=== PATIENT | female | born 1985 | race Caucasian/White ===

== ENCOUNTER 2019-04-20 07:16 | Inpatient (IN) | payer OTHER ==
[2019-04-20] MEDS ORDERED: Sodium Chloride 0.9% 10 ML Syringe FLUSH PRN (07:24)
[2019-04-20] MEDS ORDERED: Nalbuphine 10 MG/1 ML Vial IVPUSH PRN (07:24)
[2019-04-20] MEDS ORDERED: Ondansetron 4 MG/2 ML SDV IVPUSH PRN (07:24)
[2019-04-20] MEDS ORDERED: Oxytocin/Lactated Ringers 10 UNIT/1,000 ML BAG IV SCH ×2 (07:30)
[2019-04-20] MEDS: Lactated Ringers 1,000 ML IV SCH ×3 (09:22→23:02)
--- NOTE | 2019-04-20 10:47 | PCM.LDHP ---
L&D History of Present Illness - General Date of Service: 04/20/19 Admit Problem/Dx: Patient Status Order with Admit Dx/Problem 04/20/19 07:24 Patient Status [ADT] Routine Admission Diagnosis/Problem Admission Diagnosis/Problem 04/20/19 10:36 Jc is a 33-year-old 1 para 0 female who is presently at 39 and 67 weeks gestational age with an KRISTIN of 04/21/2019 who is admitted for elective induction of labor on the a.m. of 04/20/2019. - History of Present Illness Introduction:: Jc is a 33-year-old 1 para 0 female who is presently at 39 and 67 weeks gestational age with an KRISTIN of 04/21/2019 who is admitted for elective induction of labor on the a.m. of 04/20/2019.Her cervix on admission was 2+ centimeters dilated 90% effaced, -2 station, mid position, very soft. Baby in vertex presentation. Artificial rupture membranes induction and will have Pitocin added as augmentation if indicated. Patient is a been advised as to the procedure of induction of labor, its risks, benefits, alternatives of care including line for natural onset of labor. She appears to understand and wished to proceed. PATENT EXAMINER history: Patient is 1 para 0. KRISTIN of 04/21/2019 as set by her certain last menstrual period starting 07/15/2018 and supported by at least 2 ultrasounds done 10/01/2018 and 12/02/2018. Her course has been relatively unremarkable. First visit was on 10/01/2018 at which time she was 11-1/7 weeks gestational age. She is seen on a regular basis. She was a centering patient. Weight gain was from 190.4 pounds up to 211.8 pounds for a 21 pound increase. Her fundal height growth has been appropriate. Her vital signs have been stable throughout . She did have a abnormal one-hour glucose tolerance test which was followed up with a 3 hour glucose tolerance test which returned normal. She declined flu vaccination. She is group B strep negative. She plans on breast-feeding. Vision had menarche age 16. Cycles every 28-30 days and regular. She is not using any control at the time conception. Last menstrual period was definite. Laboratory testing in shows blood to be a positive with a negative [place] screen. First hemoglobin was 14.2 g/dL. Lites are 263,000. She is rubella immune. RPR was nonreactive. Hepatitis B surface antigen and HIV assays were both negative as were her chlamydia and gonorrhea tests. Second trimester hemoglobin was 12.5 g/dL. Platelets are 263,000. One-hour GTT was 199. RPR- third trimester was nonreactive. The strep screen was negative. Allergies: Benadryl which causes fatigue, itching, rash Medications: 1. vitamins 1 by mouth daily Past medical history: Unremarkable Past surgical history: 1. Hernia repair age 10 2. [place] teeth extraction Family history: Mother is alive with hypothyroidism status post thyroidectomy. Also with breast cancer extending into lymph nodes at age 60. Father is alive has MS. 2 half brothers alive and well. One sister with type 2 diabetes. Maternal grandfather is at age 90 from old age. Paternal grandmother is from breast cancer at age 60. Paternal grandfather is from lung cancerwas a smoker. Paternal grandmother deceasedcolon cancerage 70. There is no family history for bleeding or clotting abnormalities. No anesthesia problems noted in the family. Mother did have a reaction anesthesia but this is nonspecific. Social history: Patient is single. 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 She is a college graduate. She lives in [place] with her significant other Ellis Elizondo. She was denies any significant most alcohol, drugs or tobacco. Review of systems: In general patient has no complaints. Babies active. No complaints at this time. Skin: Negative Lungs: No infectious symptoms or shortness of breath Cardiovascular: No chest pain or exercise intolerance Breasts: Changes associated . Patient plans to breast-feed GI: Negative : Changes associated with . Musculoskeletal: Negative Neurological: Negative In general the patient is well-developed, well-nourished, pleasant female of stated age in no acute distress. Skin is warm dry without lesions. HEENT, neck and back within normal limits. Lungs are clear with good breath sounds in all lung boss. Cardiovascular exam shows regular and rhythm without murmurs. Breast exam is deferred having been done at first visit found to be normal it is not repeated at this time. Abdomen is gravid with last fundal height in clinic at 39.5 cm baby in vertex presentation Genital exam per digital exam described in the history of present illness. Extremities and neurological exam are grossly within normal limits. - Related Data Allergies/Adverse Reactions: Allergies Allergy/AdvReac Type Severity Reaction Status Date / Time diphenhydramine Allergy Itching Verified 04/20/19 07:58 [From Benadryl] Past Medical History HEENT History: Reports: Other (See Below) Other HEENT History: Meniere's PATENT EXAMINER History: Reports: - Past Surgical History GI Surgical History: Reports: Hernia, Abdominal Social & Family History - Family History Family Medical History: Noncontributory - Tobacco Use Smoking Status *Q: Never Smoker Second Hand Smoke Exposure: No - Recreational Drug Use Recreational Drug Use: No H&P Review of Systems - Review of Systems: Review Of Systems: See Below L&D Exam - Exam Exam: See Below - Vital Signs Vital Signs: Last Vital Signs Temp 37.1 C 04/20/19 07:24 Pulse Resp 14 04/20/19 07:24 BP 120/83 04/20/19 07:24 Pulse Ox 100 04/20/19 07:24 Weight: 96.252 kg - Patient Data Lab Results Last 24 hrs: Laboratory Results - last 24 hr 04/20/19 Range/Units 07:46 WBC 10.58 H (3.98-10.04) K/mm3 RBC 4.34 (3.98-5.22) M/mm3 Hgb 12.5 (11.2-15.7) gm/dl Hct 36.4 (34.1-44.9) % MCV 83.9 D (79.4-94.8) fl MCH 28.8 (25.6-32.2) pg MCHC 34.3 (32.2-35.5) g/dl RDW Std Deviation 37.0 (36.4-46.3) fL Plt Count 235 (182-369) K/mm3 MPV 11.5 (9.4-12.3) fl Neut % (Auto) 72.2 H (34.0-71.1) % Lymph % (Auto) 19.1 L (19.3-51.7) % [place] % (Auto) 6.6 (4.7-12.5) % Eos % (Auto) 1.5 (0.7-5.8) Baso % (Auto) 0.3 (0.1-1.2) % Neut # (Auto) 7.64 H (1.56-6.13) K/mm3 Lymph # (Auto) 2.02 (1.18-3.74) K/mm3 [place] # (Auto) 0.70 H (0.24-0.36) K/mm3 Eos # (Auto) 0.16 (0.04-0.36) K/mm3 Baso # (Auto) 0.03 (0.01-0.08) K/mm3 Result Diagrams: 04/20/19 07:46 Problem List Initiated/Reviewed/Updated: Yes Orders Last 24hrs: Active Orders 24 hr Category Date Time Status Patient Status [ADT] Routine ADT 04/20/19 07:24 Active Activity as Tolerated [RC] PFP Care 04/20/19 07:24 Active Communication Order [RC] ASDIRECTED Care 04/20/19 07:24 Active Heart Tones [RC] ASDIRECTED Care 04/20/19 07:25 Active Non Stress Test [RC] PER UNIT ROUTINE Care 04/20/19 07:24 Active Notify Provider [RC] PFP Care 04/20/19 07:24 Active Notify Provider [RC] PRN Care 04/20/19 07:24 Active Peripheral IV Care [RC] . DIRECTED Care 04/20/19 07:25 Active Vital Signs [RC] PER UNIT ROUTINE Care 04/20/19 07:24 Active Regular Diet [DIET] Diet 04/20/19 Breakfast Active BLOOD BANK HOLD SPECIMEN [BBK] Stat Lab 04/20/19 07:46 Received RAPID PLASMA REAGIN,RPR [CHEM] Routine Lab 04/20/19 07:46 Received Lactated Ringers [Ringers, Lactated] 1,000 ml Med 04/20/19 07:30 Active IV ASDIRECTED Nalbuphine [Nubain] Med 04/20/19 07:24 Active 10 mg IVPUSH Q2H PRN Ondansetron [Zofran] Med 04/20/19 07:24 Active 4 mg IVPUSH Q4H PRN Oxytocin/Lactated Ringers [Pitocin in LR 10 Units/1,000 Med 04/20/19 07:30 Active ML] 10 unit in 1,000 ml IV .CONTINUOUS Oxytocin/Lactated Ringers [Pitocin in LR 10 Units/1,000 Med 04/20/19 07:30 Active ML] 10 unit in 1,000 ml IV TITRATE Sodium Chloride 0.9% [Saline Flush] Med 04/20/19 07:24 Active 10 ml FLUSH ASDIRECTED PRN Electronic Heart Tones Ext w TOCO [WOMSER] Oth 04/20/19 07:24 Ordered Routine Electronic Heart Tones Internal [WOMSER] Per Unit Ot 04/20/19 07:24 Ordered Routine Peripheral IV Insertion Adult [OM.PC] Routine Oth 04/20/19 07:24 Ordered Resuscitation Status Routine Resus Stat 04/20/19 07:24 Ordered Medication Orders Lactated Ringer's (Ringers, Lactated) 1,000 mls @ 100 mls/hr IV ASDIRECTED KAVIN Last Admin: 04/20/19 09:22 Dose: 100 mls/hr Oxytocin/Lactated Ringer's (Pitocin In Lr 10 Units/1,000 Ml) 10 unit in 1,000 mls @ 100 mls/hr IV .CONTINUOUS KAVIN Oxytocin/Lactated Ringer's (Pitocin In Lr 10 Units/1,000 Ml) 10 unit in 1,000 mls @ 12 mls/hr IV TITRATE KAVIN; Protocol Last Admin: 04/20/19 09:25 Dose: 2 munits/min, 12 mls/hr Nalbuphine HCl (Nubain) 10 mg IVPUSH Q2H PRN PRN Reason: Pain Ondansetron HCl (Zofran) 4 mg IVPUSH Q4H PRN PRN Reason: Nausea/Vomiting Sodium Chloride (Saline Flush) 10 ml FLUSH ASDIRECTED PRN PRN Reason: Keep Vein Open Assessment/Plan Comment:: 1. 39-6/7 week intrauterine , admitted for elective induction of labor 2. Group B strep screen negative 3. Rubella immune 4. RPR nonreactive 5. Patient plans to breast-feed. 6. Patient is okay with epidural but wants to start with natural childbirth plan. Plan: 1. Artificial rupture membranes inductionwill add Pitocin augmentation as indicated 2. Routine labor care 3. Epidural patient desires 4. CBC and RPR upon admission per protocol 5. Intermittent monitoring
[2019-04-20] MEDS ORDERED: ePHEDrine 50 MG/ML SDV IVPUSH PRN (17:22)
[2019-04-20] MEDS: fentaNYL 100 MCG/2 ML SDV EPIDUR PRN (17:34)
[2019-04-20] MEDS: Bupivacaine/fentaNYL/NS 100 ML Bag EPIDUR PRN (17:36)
--- NOTE | 2019-04-20 17:52 | PCM.PREANE ---
Preanesthetic Assessment - Procedure Proposed Procedure: Epidural - Anesthesia/Transfusion/Family Hx Anesthesia History: Prior Anesthesia Without Reaction Family History of Anesthesia Reaction: No Transfusion History: No Prior Transfusion(s) - Review of Systems General: No Symptoms Pulmonary: No Symptoms Cardiovascular: No Symptoms Gastrointestinal: Abdominal Pain (labor) Neurological: No Symptoms Other: Reports: Diabetes (gestational) - Physical Assessment Vital Signs: Last Vital Signs Temp 37.1 C 04/20/19 07:24 Pulse Resp 14 04/20/19 07:24 BP 120/83 04/20/19 07:24 Pulse Ox 100 04/20/19 07:24 Height: 1.75 m Weight: 96.252 kg ASA Class: 2 Mental Status: Alert & Oriented x3 Airway Class: Mallampati = 1 Dentition: Reports: Normal Dentition Thyro-Mental Finger Breadths: 3 Mouth Opening Finger Breadths: 3 ROM/Head Extension: Full Lungs: Clear to Auscultation, Normal Respiratory Effort Cardiovascular: Regular Rate, Regular Rhythm - Lab Values: Laboratory Last Values WBC 10.58 K/mm3 (3.98-10.04) H 04/20/19 07:46 RBC 4.34 M/mm3 (3.98-5.22) 04/20/19 07:46 Hgb 12.5 gm/dl (11.2-15.7) 04/20/19 07:46 Hct 36.4 % (34.1-44.9) 04/20/19 07:46 MCV 83.9 fl (79.4-94.8) D 04/20/19 07:46 MCH 28.8 pg (25.6-32.2) 04/20/19 07:46 MCHC 34.3 g/dl (32.2-35.5) 04/20/19 07:46 RDW Std Deviation 37.0 fL (36.4-46.3) 04/20/19 07:46 Plt Count 235 K/mm3 (182-369) 04/20/19 07:46 MPV 11.5 fl (9.4-12.3) 04/20/19 07:46 Neut % (Auto) 72.2 % (34.0-71.1) H 04/20/19 07:46 Lymph % (Auto) 19.1 % (19.3-51.7) L 04/20/19 07:46 [place] % (Auto) 6.6 % (4.7-12.5) 04/20/19 07:46 Eos % (Auto) 1.5 (0.7-5.8) 04/20/19 07:46 Baso % (Auto) 0.3 % (0.1-1.2) 04/20/19 07:46 Neut # (Auto) 7.64 K/mm3 (1.56-6.13) H 04/20/19 07:46 Lymph # (Auto) 2.02 K/mm3 (1.18-3.74) 04/20/19 07:46 [place] # (Auto) 0.70 K/mm3 (0.24-0.36) H 04/20/19 07:46 Eos # (Auto) 0.16 K/mm3 (0.04-0.36) 04/20/19 07:46 Baso # (Auto) 0.03 K/mm3 (0.01-0.08) 04/20/19 07:46 RPR Non-reactive (NONREACTIVE) 04/20/19 07:46 - Allergies Allergies/Adverse Reactions: Allergies Allergy/AdvReac Type Severity Reaction Status Date / Time diphenhydramine Allergy Itching Verified 04/20/19 07:58 [From Benadryl] - Anesthesia Plan Pre-Op Medication Ordered: None - Acknowledgements Anesthesia Type Planned: Epidural Pt an Appropriate Candidate for the Planned Anesthesia: Yes Alternatives and Risks of Anesthesia Discussed w Pt/Guardian: Yes Pt/Guardian Understands and Agrees with Anesthesia Plan: Yes PreAnesthesia Questionnaire HEENT History: Reports: Other (See Below) Other HEENT History: Meniere's Gastrointestinal History: Reports: GERD [employer]ER AND [employer]IVETER History: Reports: - Past Surgical History GI Surgical History: Reports: Hernia, Abdominal - SUBSTANCE USE Smoking Status *Q: Never Smoker Second Hand Smoke Exposure: No Recreational Drug Use History: No - CURRENT (IN HOUSE) MEDS Current Meds: Current Medications Ephedrine Sulfate (Ephedrine Sulfate) 5 mg IVPUSH ASDIRECTED PRN PRN Reason: HYPOTENTSION Fentanyl (Sublimaze) 100 mcg EPIDUR Q3H PRN PRN Reason: Pain Last Admin: 04/20/19 17:34 Dose: 100 mcg Fentanyl/Bupivacaine HCl (Fentanyl/Bupivacaine/Ns 2 Mcg-0.125% 100 Ml) 100 ml EPIDUR CONTINUOUS PRN PRN Reason: Pain Last Admin: 04/20/19 17:36 Dose: 100 ml Lactated Ringer's (Ringers, Lactated) 1,000 mls @ 100 mls/hr IV ASDIRECTED KAVIN Last Admin: 04/20/19 16:28 Dose: 100 mls/hr Oxytocin/Lactated Ringer's (Pitocin In Lr 10 Units/1,000 Ml) 10 unit in 1,000 mls @ 100 mls/hr IV .CONTINUOUS KAVIN Oxytocin/Lactated Ringer's (Pitocin In Lr 10 Units/1,000 Ml) 10 unit in 1,000 mls @ 12 mls/hr IV TITRATE KAVIN; Protocol Last Titration: 04/20/19 14:22 Dose: 14 munits/min, 84 mls/hr Nalbuphine HCl (Nubain) 10 mg IVPUSH Q2H PRN PRN Reason: Pain Last Admin: 04/20/19 16:36 Dose: 10 mg Ondansetron HCl (Zofran) 4 mg IVPUSH Q4H PRN PRN Reason: Nausea/Vomiting Sodium Chloride (Saline Flush) 10 ml FLUSH ASDIRECTED PRN PRN Reason: Keep Vein Open
[2019-04-20] MEDS ORDERED: Calcium Carbonate 500 MG Tab.Chew PO ONE (22:37)
[2019-04-20] MEDS ORDERED: Oxytocin/Lactated Ringers 20 UNIT/1,000 ML BAG IV SCH (23:08)
[2019-04-21] MEDS ORDERED: Bupivacaine 0.25% 10 ML SDV ONE
[2019-04-21] MEDS ORDERED: Oxytocin/Lactated Ringers 20 UNIT/1,000 ML BAG IV SCH ×2 (00:15→00:30)
[2019-04-21] MEDS: Lactated Ringers 1,000 ML IV SCH ×4 (01:33→09:15)
[2019-04-21] MEDS: Bupivacaine/fentaNYL/NS 100 ML Bag EPIDUR PRN ×2 (02:35→09:21)
[2019-04-21] MEDS: fentaNYL 100 MCG/2 ML SDV EPIDUR PRN (04:06)
[2019-04-21] MEDS ORDERED: Sodium Chloride 0.9% 1,000 ML ONE (04:09)
--- NOTE | 2019-04-21 04:11 | PCM.SN ---
- Free Text/Narrative Note: 0350 called to room 32 for break through pain. Bolus epidural with 2ml fentanyl 10ml bupivacaine 0.25% PF increase gtt to 14ml/hr VSS out of room at 0411.
[2019-04-21] MEDS ORDERED: Acetaminophen 325 MG Tab PO ONE (08:20)
--- NOTE | 2019-04-21 13:04 | PCM.SN ---
- Free Text/Narrative Note: Jc is a 33-year-old 1 para 0 female who is presently at 39 and 67 weeks gestational age with an KRISTIN of 04/21/2019 who is admitted for elective induction of labor on the a.m. of 04/20/2019.Her cervix on admission was 2+ centimeters dilated 90% effaced, -2 station, mid position, very soft. Baby in vertex presentation. Artificial rupture membranes induction and will have Pitocin added as augmentation if indicated. Patient is a been advised as to the procedure of induction of labor, its risks, benefits, alternatives of care including line for natural onset of labor. Patient progressed slowly throughout the course of labor. She had an epidural for labor analgesia. She became complete at approximately 0800 hrs. on 04/21/2019. She pushed for approximately 3 hours and 15 minutes at which time she requested intervention with vacuum extraction. During the course of pushing she did have a mildly elevated temperature but with IV fluid hydration this return to near normal. Vacuum extraction was discussed in detail the patient including the procedure, risks, benefits, potential complications and alternatives including . She appeared to understand and wish to proceed. She gave verbal consent for this. The bladder was drained of approximately 1000 mL of urine with a red rubber catheter. Using vacuum Extraction with Silastic cup vacuum extractor was applied and with one contraction the baby was delivered without problems. Baby delivered at 1116 hrs. on 04/21/2019. He was male weighing 3670 g (8 pounds 1.5 ounces), was 21.5 inches in length and at Apgars of 7 and 9. He delivered in a right occiput anterior position. Baby was placed on mom's abdomen. The cord was allowed to pulsate for approximately 2 minutes and then was clamped and cut by the baby's father Ellis. Blood was obtained. Pitocin was increased to 500 mL an hour to facilitate increase uterine tone and decrease likelihood of bleeding. Second-degree perineal lacerations repaired with 3-0 Monocryl using her labor epidural as anesthesia. Patient tolerated this well. The placenta delivered in a [place] presentation, appeared intact and complete and was discarded per patient desire. Patient plans to breast-feed. Estimated blood loss was 100 mL. Condition: Good
[2019-04-21] MEDS ORDERED: Benzocaine/Menthol 20%-0.5% Spray 56 GM Canister TOP PRN (14:17)
[2019-04-21] MEDS ORDERED: Acetaminophen 325 MG Tab PO PRN (14:17)
[2019-04-21] MEDS ORDERED: Docusate Sodium 100 MG Cap PO PRN (14:17)
[2019-04-21] MEDS ORDERED: Witch Hazel Medicated Pads 40/Jar TOP PRN (14:17)
[2019-04-21] MEDS ORDERED: Lanolin 100% Cream 7 GM Tube TOP PRN (14:17)
[2019-04-21] MEDS: Ibuprofen 600 MG Tab PO PRN (22:11)
[2019-04-22] MEDS: Ibuprofen 600 MG Tab PO PRN ×2 (03:35→21:27)
--- NOTE | 2019-04-22 08:35 | PCM48HPAN ---
Post Anesthesia Note - EVALUATION WITHIN 48HRS OF ANESTHETIC Vital Signs in Normal Range: Yes Patient Participated in Evaluation: Yes Respiratory Function Stable: Yes Airway Patent: Yes Cardiovascular Function Stable: Yes Hydration Status Stable: Yes Pain Control Satisfactory: Yes Nausea and Vomiting Control Satisfactory: Yes Mental Status Recovered: Yes Vital Signs: Last Vital Signs Temp 36.1 C 04/22/19 03:36 Pulse 85 04/22/19 03:36 Resp 14 04/22/19 03:36 BP 120/78 04/22/19 03:36 Pulse Ox 98 04/22/19 03:36 - COMMENTS/OBSERVATIONS Free Text/Narrative:: no anesthesia complications noted
[2019-04-22] MEDS: Prenatal Multivitamin with Calcium/Folic Acid/Iron Tab PO SCH (08:42)
[2019-04-23] MEDS: Ibuprofen 600 MG Tab PO PRN (03:28)
--- NOTE | 2019-04-23 07:33 | PCM.DCSUM1 ---
Discharge Summary - Hospital Course Free Text/Narrative:: Jc is a 33-year-old 1 para 0 female who is presently at 39 and 67 weeks gestational age with an KRISTIN of 04/21/2019 who is admitted for elective induction of labor on the a.m. of 04/20/2019.Her cervix on admission was 2+ centimeters dilated 90% effaced, -2 station, mid position, very soft. Baby in vertex presentation. Artificial rupture membranes induction and will have Pitocin added as augmentation if indicated. Patient is a been advised as to the procedure of induction of labor, its risks, benefits, alternatives of care including line for natural onset of labor. Patient progressed slowly throughout the course of labor. She had an epidural for labor analgesia. She became complete at approximately 0800 hrs. on 04/21/2019. She pushed for approximately 3 hours and 15 minutes at which time she requested intervention with vacuum extraction. During the course of pushing she did have a mildly elevated temperature but with IV fluid hydration this return to near normal. Vacuum extraction was discussed in detail the patient including the procedure, risks, benefits, potential complications and alternatives including . She appeared to understand and wish to proceed. She gave verbal consent for this. The bladder was drained of approximately 1000 mL of urine with a red rubber catheter. Using vacuum Extraction with Silastic cup vacuum extractor was applied and with one contraction the baby was delivered without problems. Baby delivered at 1116 hrs. on 04/21/2019. He was male weighing 3670 g (8 pounds 1.5 ounces), was 21.5 inches in length and at Apgars of 7 and 9. He delivered in a right occiput anterior position. Baby was placed on mom's abdomen. The cord was allowed to pulsate for approximately 2 minutes and then was clamped and cut by the baby's father Ellis. Blood was obtained. Pitocin was increased to 500 mL an hour to facilitate increase uterine tone and decrease likelihood of bleeding. Second-degree perineal lacerations repaired with 3-0 Monocryl using her labor epidural as anesthesia. Patient tolerated this well. The placenta delivered in a Jefferson presentation, appeared intact and complete and was discarded per patient desire. Patient plans to breast-feed. Estimated blood loss was 100 mL. Condition: Good HPI Initial Comments: Jc is a 33-year-old 1 para 0 female who is presently at 39 and 67 weeks gestational age with an KRISTIN of 04/21/2019 who is admitted for elective induction of labor on the a.m. of 04/20/2019.Her cervix on admission was 2+ centimeters dilated 90% effaced, -2 station, mid position, very soft. Baby in vertex presentation. Artificial rupture membranes induction and will have Pitocin added as augmentation if indicated. Patient is a been advised as to the procedure of induction of labor, its risks, benefits, alternatives of care including line for natural onset of labor. Patient progressed slowly throughout the course of labor. She had an epidural for labor analgesia. She became complete at approximately 0800 hrs. on 04/21/2019. She pushed for approximately 3 hours and 15 minutes at which time she requested intervention with vacuum extraction. During the course of pushing she did have a mildly elevated temperature but with IV fluid hydration this return to near normal. Vacuum extraction was discussed in detail the patient including the procedure, risks, benefits, potential complications and alternatives including . She appeared to understand and wish to proceed. She gave verbal consent for this. The bladder was drained of approximately 1000 mL of urine with a red rubber catheter. Using vacuum Extraction with Silastic cup vacuum extractor was applied and with one contraction the baby was delivered without problems. Baby delivered at 1116 hrs. on 04/21/2019. He was male weighing 3670 g (8 pounds 1.5 ounces), was 21.5 inches in length and at Apgars of 7 and 9. He delivered in a right occiput anterior position. Baby was placed on mom's abdomen. The cord was allowed to pulsate for approximately 2 minutes and then was clamped and cut by the baby's father Ellis. Blood was obtained. Pitocin was increased to 500 mL an hour to facilitate increase uterine tone and decrease likelihood of bleeding. Second-degree perineal lacerations repaired with 3-0 Monocryl using her labor epidural as anesthesia. Patient tolerated this well. The placenta delivered in a Jefferson presentation, appeared intact and complete and was discarded per patient desire. Patient plans to breast-feed. Estimated blood loss was 100 mL. Condition: Good Brief History: Jc is a 33-year-old 1 para 0 female who is presently at 39 and 67 weeks gestational age with an KRISTIN of 04/21/2019 who is admitted for elective induction of labor on the a.m. of 04/20/2019.Her cervix on admission was 2+ centimeters dilated 90% effaced, -2 station, mid position, very soft. Baby in vertex presentation. Artificial rupture membranes induction and will have Pitocin added as augmentation if indicated. Patient is a been advised as to the procedure of induction of labor, its risks, benefits, alternatives of care including line for natural onset of labor. Patient progressed slowly throughout the course of labor. She had an epidural for labor analgesia. She became complete at approximately 0800 hrs. on 04/21/2019. She pushed for approximately 3 hours and 15 minutes at which time she requested intervention with vacuum extraction. During the course of pushing she did have a mildly elevated temperature but with IV fluid hydration this return to near normal. Vacuum extraction was discussed in detail the patient including the procedure, risks, benefits, potential complications and alternatives including C -section. She appeared to understand and wish to proceed. She gave verbal consent for this. The bladder was drained of approximately 1000 mL of urine with a red rubber catheter. Using vacuum Extraction with Silastic cup vacuum extractor was applied and with one contraction the baby was delivered without problems. Baby delivered at 1116 hrs. on 04/21/2019. He was male weighing 3670 g (8 pounds 1.5 ounces), was 21.5 inches in length and at Apgars of 7 and 9. He delivered in a right occiput anterior position. Baby was placed on mom's abdomen. The cord was allowed to pulsate for approximately 2 minutes and then was clamped and cut by the baby's father Ellis. Blood was obtained. Pitocin was increased to 500 mL an hour to facilitate increase uterine tone and decrease likelihood of bleeding. Second-degree perineal lacerations repaired with 3-0 Monocryl using her labor epidural as anesthesia. Patient tolerated this well. The placenta delivered in a Jefferson presentation, appeared intact and complete and was discarded per patient desire. Patient plans to breast-feed. Estimated blood loss was 100 mL. Condition: Good Diagnosis: Stroke: No - Discharge Data Discharge Date: 04/23/19 Discharge Disposition: Home, Self-Care 01 Condition: Good - Referral to Home Health Primary Care Physician: Dago Gutierrez MD - Discharge Diagnosis/Problem(s) (1) Second degree laceration of perineum, delivered, current hospitalization SNOMED Code(s): 487796441, [id number] ICD Code: O70.1 - SECOND DEGREE PERINEAL LACERATION DURING DELIVERY Status : Acute Current Visit: Yes (2) 39 weeks gestation of SNOMED Code(s): 99237368 ICD Code: Z3A.39 - 39 WEEKS GESTATION OF Status: Acute Current Visit: Yes - Patient Summary/Data Complications: none Consults: none Hospital Course: uneventful - Patient Instructions Diet: Usual Diet as Tolerated Driving: Do Not Drive (48 hours) Showering/Bathing: May Shower Notify Provider of: Fever, Increased Pain, Swelling and Redness, Drainage, Nausea and/or Vomiting - Discharge Plan *PRESCRIPTION DRUG MONITORING PROGRAM REVIEWED*: Not Applicable *COPY OF PRESCRIPTION DRUG MONITORING REPORT IN PATIENT JING: Not Applicable Home Medications: Home Meds Acetaminophen [Tylenol] 650 mg PO Q6H PRN tablet 04/23/19 [Rx] Benzocaine/Menthol [Dermoplast Pain Relief [place]] 1 spray TOP ASDIRECTED PRN canister 04/23/19 [Rx] Docusate Sodium [Colace] 100 mg PO BID PRN cap 04/23/19 [Rx] Ibuprofen [Motrin] 600 mg PO Q6H PRN tablet 04/23/19 [Rx] Lanolin [Lansinoh HPA] 1 applic TOP ASDIRECTED PRN tube 04/23/19 [Rx] Vit with Ca/FA/Iron [ Plus Iron] 1 each PO DAILY tablet [Rx] Witch Ines [Tucks] 1 pad TOP ASDIRECTED PRN pad 04/23/19 [Rx] Referrals: Dago Gutierrez MD [Primary Care Provider] - (Patient call my Appointment for [address] Gutierrez ) - Discharge Summary/Plan Comment DC Time >30 min.: No - Patient Data Vitals - Most Recent: Last Vital Signs Temp 97.6 F 04/23/19 03:00 Pulse 76 04/23/19 03:00 Resp 15 04/23/19 03:00 BP 120/74 04/23/19 03:00 Pulse Ox 98 04/23/19 03:00 Weight - Most Recent: 212 lb 3.2 oz Med Orders - Current: Current Medications Acetaminophen (Tylenol) 650 mg PO Q4H PRN PRN Reason: mild pain or fever Benzocaine/Menthol (Dermoplast Pain Relief [place]) 0 gm TOP ASDIRECTED PRN PRN Reason: Perineal Comfort Measure Last Admin: 04/21/19 22:23 Dose: 1 canister Docusate Sodium (Colace) 100 mg PO BID PRN PRN Reason: Constipation Last Admin: 04/22/19 22:53 Dose: 100 mg Emollient Ointment (Lansinoh Hpa) 0 gm TOP ASDIRECTED PRN PRN Reason: Sore Nipples Last Admin: 04/21/19 22:24 Dose: 1 tube Ibuprofen (Motrin) 600 mg PO Q4H PRN PRN Reason: Mild pain or fever Last Admin: 04/23/19 03:28 Dose: 600 mg Prenat Multivit/[place]/Iron/Folic Ac ( Plus Iron) 1 each PO DAILY KAVIN Last Admin: 04/22/19 08:42 Dose: 1 each Witch Ines (Tucks) 1 pad TOP ASDIRECTED PRN PRN Reason: Pain Discontinued Medications Acetaminophen (Tylenol) 650 mg PO NOW ONE Stop: 04/21/19 08:21 Last Admin: 04/21/19 08:15 Dose: 650 mg Bupivacaine HCl (Sensorcaine-Mpf 0.25%) 20 ml .ROUTE .STK-MED ONE Stop: 04/21/19 00:01 Calcium Carbonate/Glycine (Tums) 1,000 mg PO ONETIME ONE Stop: 04/20/19 22:38 Last Admin: 04/20/19 23:01 Dose: 1,000 mg Ephedrine Sulfate (Ephedrine Sulfate) 5 mg IVPUSH ASDIRECTED PRN PRN Reason: HYPOTENTSION Fentanyl (Sublimaze) 100 mcg EPIDUR Q3H PRN PRN Reason: Pain Last Admin: 04/21/19 04:06 Dose: 100 mcg Fentanyl/Bupivacaine HCl (Fentanyl/Bupivacaine/Ns 2 Mcg-0.125% 100 Ml) 100 ml EPIDUR CONTINUOUS PRN PRN Reason: Pain Last Admin: 04/21/19 09:21 Dose: 100 ml Lactated Ringer's (Ringers, Lactated) 1,000 mls @ 100 mls/hr IV ASDIRECTED KAVIN Last Admin: 04/21/19 09:15 Dose: 100 mls/hr Oxytocin/Lactated Ringer's (Pitocin In Lr 10 Units/1,000 Ml) 10 unit in 1,000 mls @ 100 mls/hr IV .CONTINUOUS KAVIN Oxytocin/Lactated Ringer's (Pitocin In Lr 10 Units/1,000 Ml) 10 unit in 1,000 mls @ 12 mls/hr IV TITRATE KAVIN; Protocol Last Titration: 04/20/19 23:19 Dose: 0 munits/min, 0 mls/hr Oxytocin/Lactated Ringer's (Pitocin In Lr 20 Units/1,000 Ml) 20 unit in 1,000 mls @ 30 mls/hr IV TITRATE KAVIN; Protocol Last Admin: 04/20/19 23:19 Dose: 30 mls/hr Oxytocin/Lactated Ringer's (Pitocin In Lr 20 Units/1,000 Ml) 20 unit in 1,000 mls @ 30 mls/hr IV TITRATE KAVIN; Protocol Last Admin: 04/21/19 00:10 Dose: 30 mls/hr Oxytocin/Lactated Ringer's (Pitocin In Lr 20 Units/1,000 Ml) 20 unit in 1,000 mls @ 30 mls/hr IV TITRATE KAVIN; Protocol Last Admin: 04/21/19 00:33 Dose: 30 mls/hr Sodium Chloride (Normal Saline) Confirm Administered Dose 1,000 mls @ as directed .ROUTE .STK-MED ONE Stop: 04/21/19 04:10 Last Admin: 04/21/19 04:32 Dose: 100 mls/hr Nalbuphine HCl (Nubain) 10 mg IVPUSH Q2H PRN PRN Reason: Pain Last Admin: 04/20/19 16:36 Dose: 10 mg Ondansetron HCl (Zofran) 4 mg IVPUSH Q4H PRN PRN Reason: Nausea/Vomiting Sodium Chloride (Saline Flush) 10 ml FLUSH ASDIRECTED PRN PRN Reason: Keep Vein Open
[2019-04-23] MEDS: Prenatal Multivitamin with Calcium/Folic Acid/Iron Tab PO SCH (10:38)
== END 2019-04-23 12:15 | disposition home or self-care (01) | DRG 807 ==
LOC: JD.OB 07:16 → OBSVTOIN 04-21 11:16 → JD.OB 04-21 11:17
PROVIDERS: ADMIT Obstetrics & Gynecology; ATTEND Obstetrics & Gynecology
PROC: 10D07Z6 Extraction of Products of Conception, Vacuum, Via Natural or Artificial Opening (ICD-10-PCS; principal; 2019-04-21)
PROC: 0KQM0ZZ Repair Perineum Muscle, Open Approach (ICD-10-PCS; 2019-04-21)
PROC: 10907ZC Drainage of Amniotic Fluid, Therapeutic from Products of Conception, Via Natural or Artificial Opening (ICD-10-PCS; 2019-04-21)
PROC: 3E0R3BZ Introduction of Anesthetic Agent into Spinal Canal, Percutaneous Approach (ICD-10-PCS; 2019-04-21)
DX: O48.0 Post-term pregnancy (principal); Z37.0 Single live birth; O70.1 Second degree perineal laceration during delivery; Z88.6 Allergy status to analgesic agent; Z3A.40 40 weeks gestation of pregnancy
CPT/HCPCS: 01967; 36415; 51701; 51702; 59025; 59409; 85025; 86592; A9270-GY; J2300; J2590; J3010; J3490; J7040; J7120

== ENCOUNTER 2020-08-24 21:08 | Emergency (ER) | payer MEDICAID, OTHER ==
[2020-08-24] MEDS ORDERED: Sodium Chloride 0.9% 10 ML Syringe FLUSH PRN (21:39)
[2020-08-24] MEDS ORDERED: Sodium Chloride 0.9% 1,000 ML IV STA (21:50)
[2020-08-24] MEDS ORDERED: Promethazine 25 MG in Sodium Chloride 0.9% 50 ML IV ONE (21:53)
--- NOTE | 2020-08-24 21:58 | EDM.PDOC ---
ED HPI GENERAL MEDICAL PROBLEM - General Chief Complaint: Gastrointestinal Problem Stated Complaint: 9 1/2 WKS PREG. NOT ABLE TO KEEP ANYTHING DOWN Time Seen by Provider: 08/24/20 21:30 Source of Information: Reports: Patient, RN Notes Reviewed History Limitations: Reports: No Limitations - History of Present Illness INITIAL COMMENTS - FREE TEXT/NARRATIVE: Patient is a 35-year-old female G2, P1 9.5 weeks gestation presenting to the emergency department with complaints of intractable nausea and vomiting. Her LMP was 06/19/2020. She states she has been having these problems since approximately 5 weeks gestation. Over the course of last week, she has been unable to keep liquids down. She states every time she takes a sip of water she vomits. She did have Zofran and Unisom her left from her previous which she has been using. These medications "do not touch it". Her SEWING MACHINE ATTACHMENT TESTER is Dr. Gutierrez, however she has not had an appointment with him thus far this [facility]. She denies any pelvic cramping or abnormal vaginal bleeding. She states when she is vomiting she will get some pain in her lower abdomen which she attributes straining her abdominal muscles from retching. Pain is not present at the time of exam. She denies any fever or chills. She is had no dysuria but states her urine has been dark in color. She did have nausea and vomiting with her previous , but it was not as severe. Right Lower Abdomen Pain Score (Numeric/FACES): 4 - Related Data Allergies Allergy/AdvReac Type Severity Reaction Status Date / Time diphenhydramine Allergy Itching Verified 08/24/20 21:38 [From Benadryl] Home Meds: Home Meds Doxylamine Succinate [Unisom] 25 mg PO Q6H PRN 08/24/20 [History] Ondansetron [Zofran] 8 mg PO Q6H PRN 08/24/20 [History] Potassium Chloride 10 meq PO BID 10 Days #5 capsule.er 08/24/20 [Rx] Promethazine [Phenergan] 25 mg PO Q6H PRN #15 tab 08/24/20 [Rx] Past Medical History HEENT History: Reports: Other (See Below) Other HEENT History: Meniere's disease Gastrointestinal History: Reports: GERD SEWING MACHINE ATTACHMENT TESTER History: Reports: Neurological History: Reports: Migraines - Past Surgical History GI Surgical History: Reports: Hernia, Abdominal Social & Family History - Family History Family Medical History: No Pertinent Family History - Tobacco Use Tobacco Use Status *Q: Never Tobacco User Second Hand Smoke Exposure: No - Caffeine Use Caffeine Use: Reports: None - Recreational Drug Use Recreational Drug Use: No ED ROS GENERAL - Review of Systems Review Of Systems: See Below Constitutional: Reports: Fatigue. Denies: Fever, Chills HEENT: Reports: No Symptoms Respiratory: Reports: No Symptoms Cardiovascular: Reports: No Symptoms Endocrine: Reports: No Symptoms GI/Abdominal: Reports: Nausea, Vomiting. Denies: Abdominal Pain, Diarrhea : Reports: No Symptoms Musculoskeletal: Reports: No Symptoms Skin: Reports: No Symptoms Neurological: Reports: No Symptoms Psychiatric: Reports: No Symptoms Hematologic/Lymphatic: Reports: No Symptoms Immunologic: Reports: No Symptoms ED EXAM - Physical Exam Exam: See Below Exam Limited By: No Limitations General Appearance: Alert, WD/WN, No Apparent Distress Throat/Mouth: Other (dry mucous membranes) Respiratory/Chest: No Respiratory Distress, Lungs Clear, Normal Breath Sounds, No Accessory Muscle Use, Chest Non-Tender Cardiovascular: Normal Peripheral Pulses, Regular Rate, Rhythm, No Edema, No Gallop, No JVD, No Murmur, No Rub GI/Abdominal Exam: Normal Bowel Sounds, Soft, Non-Tender, No Organomegaly, No Distention, No Abnormal Bruit, No Mass, Pelvis Stable Neurological: Alert, Oriented, CN II-XII Intact, Normal Cognition, Normal Gait, Normal Reflexes, No Motor/Sensory Deficits Psychiatric: Normal Affect, Normal Mood Skin Exam: Warm, Dry, Intact, Normal Color, No Rash Course - Vital Signs Last Recorded V/S: Last Vital Signs Temp 97.5 F 08/24/20 21:33 Pulse 104 H 08/24/20 21:33 Resp 17 08/24/20 21:33 BP 128/91 H 08/24/20 21:33 Pulse Ox 98 08/24/20 21:33 - Orders/Labs/Meds Labs: Laboratory Tests 08/24/20 08/24/20 08/24/20 Range/Units 21:58 21:58 23:26 WBC 13.85 H (3.98-10.04) K/mm3 RBC 5.03 (3.98-5.22) M/mm3 Hgb 14.7 D (11.2-15.7) gm/dl Hct 41.8 (34.1-44.9) % MCV 83.1 (79.4-94.8) fl MCH 29.2 (25.6-32.2) pg MCHC 35.2 (32.2-35.5) g/dl RDW Std Deviation 38.1 (36.4-46.3) fL Plt Count 310 D (182-369) K/mm3 MPV 10.5 (9.4-12.3) fl Neut % (Auto) 76.8 H (34.0-71.1) % Lymph % (Auto) 15.7 L (19.3-51.7) % [place] % (Auto) 6.5 (4.7-12.5) % Eos % (Auto) 0.7 (0.7-5.8) Baso % (Auto) 0.2 (0.1-1.2) % Neut # (Auto) 10.63 H (1.56-6.13) K/mm3 Lymph # (Auto) 2.17 (1.18-3.74) K/mm3 [place] # (Auto) 0.90 H (0.24-0.36) K/mm3 Eos # (Auto) 0.10 (0.04-0.36) K/mm3 Baso # (Auto) 0.03 (0.01-0.08) K/mm3 Manual Slide Review Normal smear Sodium 137 (136-145) mEq/L Potassium 3.1 L (3.5-5.1) mEq/L Chloride 99 (98-107) mEq/L Carbon Dioxide 24 (21-32) mEq/L Anion Gap 17.1 H (5-15) BUN 10 (7-18) mg/dL Creatinine 0.7 (0.55-1.02) mg/dL Est Cr Clr Drug Dosing 118.35 mL/min Estimated GFR (MDRD) > 60 (>60) mL/min BUN/Creatinine Ratio 14.3 (14-18) Glucose 82 (74-106) mg/dL Calcium 9.3 (8.5-10.1) mg/dL Magnesium 1.8 (1.8-2.4) mg/dl Total Bilirubin 1.0 (0.2-1.0) mg/dL AST 36 (15-37) U/L ALT 102 H (14-59) U/L Alkaline Phosphatase 108 (46-116) U/L C-Reactive Protein 2.1 H* (<1.0) mg/dL Total Protein 8.3 H (6.4-8.2) g/dl Albumin 4.1 (3.4-5.0) g/dl Globulin 4.2 gm/dL Albumin/Globulin Ratio 1.0 (1-2) HCG, Quant 85457.0 mIU/mL Urine Color Dark yellow (Yellow) Urine Appearance Clear (Clear) Urine pH 6.5 (5.0-8.0) Ur Specific [place] 1.025 (1.005-1.030) Urine Protein 1+ H (Negative) Urine Glucose (UA) Negative (Negative) Urine Ketones 4+ H (Negative) Urine Occult Blood Negative (Negative) Urine Nitrite Negative (Negative) Urine Bilirubin 2+ H (Negative) Urine Urobilinogen 4.0 H (0.2-1.0) Ur Leukocyte Esterase Trace H (Negative) Urine RBC 0-5 (0-5) /hpf Urine WBC 0-5 (0-5) /hpf Ur Squamous Epith Cells 20-30 H (0-5) /hpf Urine Bacteria Moderate H (FEW) /hpf Urine Mucus Many H (FEW) /hpf Meds: Medications Discontinued Medications Generic Name Dose Route Start Last Admin Trade Name Freq PRN Reason Stop Dose Admin Sodium Chloride 1,000 mls @ 999 mls/hr 08/24/20 21:50 08/24/20 22:16 Normal Saline IV 08/24/20 22:50 999 mls/hr NOW STA Administration Promethazine HCl 25 mg/ Sodium 51 mls @ 100 mls/hr 08/24/20 21:53 08/24/20 22:16 Chloride IV 08/24/20 22:23 100 mls/hr ONETIME ONE Administration Sodium Chloride 10 ml 08/24/20 21:39 08/24/20 22:16 Saline Flush FLUSH 10 ml ASDIRECTED PRN Administration Keep Vein Open - Re-Assessments/Exams Free Text/Narrative Re-Assessment/Exam: Patient is a 35-year-old female G2, P1, 9-1/2 weeks gestation presenting with complaints of intractable nausea and vomiting worse over the last 1 week. She has been using Zofran ODT and Unisom with little relief. States she has not been able to keep fluids down. I have ordered blood work, urinalysis, will liter bolus of normal saline, and Phenergan 25 mg IV. 08/24/20 22:53 Hematology was significant for WBC minimally elevated at 13.5, potassium 3.1, anion gap 17.1, CRP 2.1. Patient is feeling much better after the Phenergan. IV fluids are still infusing. She is sipping on Powerade to see how she tolerates oral fluids. She has not provided a urine sample thus far but she paul l attempt shortly. 08/24/20 23:50 1+ protein, 4+ ketones, 2+ bilirubin, 4.0 urobilinogen, trace leukocyte esterase, 20-30 squamous epithelials, moderate bacteria, many mucus. Results are indicative of likely contamination. I have sent urine for culture. Patient has tolerated oral fluids well. I have sent a prescription for Phenergan as well as oral potassium to the pharmacy. Discharge instructions as documented. Departure - Departure Time of Disposition: 23:55 Disposition: Home, Self-Care Condition: Good Clinical Impression: Nausea and vomiting during , Hypokalemia - Discharge Information *PRESCRIPTION DRUG MONITORING PROGRAM REVIEWED*: No *COPY OF PRESCRIPTION DRUG MONITORING REPORT IN PATIENT JING: No Prescriptions: Promethazine [Phenergan] 25 mg PO Q6H PRN #15 tab PRN Reason: Nausea/Vomiting Potassium Chloride 10 meq PO BID 10 Days #5 capsule.er Instructions: Nausea and Vomiting, Adult Referrals: Dago Gutierrez MD [Primary Care Provider] - Forms: ED Department Discharge Additional Instructions: You were seen in the emergency department today for excessive nausea and vomiting during . Work-up included blood work and urinalysis. Results your work-up showed that you were mildly dehydrated. Your potassium was also found to be low. While in the ER, you received a liter of IV fluids as well as Phenergan IV which did improve your symptoms. A prescription for Phenergan and potassium has been sent to [facility]. Uses medications as prescribed. Recommend oral hydration with Gatorade or Powerade and bland diet as tolerated. Keep your appointment with your SEWING MACHINE ATTACHMENT TESTER as currently scheduled. Return to ER for any new or worsening symptoms. Sepsis Event Note (ED) - Evaluation Sepsis Screening Result: No Definite Risk
== END 2020-08-25 00:03 | disposition home or self-care (01) ==
LOC: JD.ED 21:08
DX: O21.9 Vomiting of pregnancy, unspecified (principal); O99.281 Endocrine, nutritional and metabolic diseases complicating pregnancy, first trimester; E87.6 Hypokalemia; O99.111 Other diseases of the blood and blood-forming organs and certain disorders involving the immune mechanism complicating pregnancy, first trimester; D72.829 Elevated white blood cell count, unspecified; Z88.8 Allergy status to other drugs, medicaments and biological substances; Z3A.09 9 weeks gestation of pregnancy
CPT/HCPCS: 36415; 80053; 81001; 83735; 84702; 85025; 86140; 87086; 96365; 99284; J2550; J7030; 99283

== ENCOUNTER 2020-09-30 20:16 | Emergency (ER) | payer MEDICAID ==
--- NOTE | 2020-09-30 21:05 | EDM.PDOC ---
ED HPI GENERAL MEDICAL PROBLEM - General Chief Complaint: INVOICING SPECIALIST Problem Stated Complaint: 15 WEEKS PREG BLEEDING AND CRAMPING Time Seen by Provider: 09/30/20 20:20 Source of Information: Reports: Patient, RN Notes Reviewed History Limitations: Reports: No Limitations - History of Present Illness INITIAL COMMENTS - FREE TEXT/NARRATIVE: Patient is a 35-year-old female, G2, P1, 15 weeks gestation presenting to the emergency department with complaints of acute onset of vaginal bleeding with some mild low abdominal cramping. She states that she was vomiting this evening when she felt a gush of fluid when she strained to vomit. She describes a gush of blood with some clots present. She reports having some intermittent "period or diarrhea cramps", but states that she has been having these off and on and she assumed that they were related to constipation. She checked her pad upon arrival to ER and states that there is a small amount of blood but that it has decreased from its initial onset. She has been having problems with vomiting throughout her and uses Zofran and Phenergan as needed. Her INVOICING SPECIALIST is Dr. Gutierrez. Lower Abdominal Pain Score (Numeric/FACES): 3 - Related Data Allergies Allergy/AdvReac Type Severity Reaction Status Date / Time diphenhydramine Allergy Itching Verified 09/30/20 20:30 [From Benadryl] Home Meds: Home Meds Doxylamine Succinate [Unisom] 25 mg PO Q6H PRN 08/24/20 [History] Ondansetron [Zofran] 8 mg PO Q6H PRN 08/24/20 [History] Promethazine [Phenergan] 25 mg PO Q6H PRN #15 tab 08/24/20 [Rx] Past Medical History HEENT History: Reports: Other (See Below) Other HEENT History: Meniere's disease Gastrointestinal History: Reports: GERD INVOICING SPECIALIST History: Reports: Neurological History: Reports: Migraines - Past Surgical History GI Surgical History: Reports: Hernia, Abdominal Social & Family History - Family History Family Medical History: No Pertinent Family History - Caffeine Use Caffeine Use: Reports: None ED ROS GENERAL - Review of Systems Review Of Systems: See Below Constitutional: Reports: No Symptoms HEENT: Reports: No Symptoms Respiratory: Reports: No Symptoms Cardiovascular: Reports: No Symptoms Endocrine: Reports: No Symptoms GI/Abdominal: Reports: Abdominal Pain (Intermittent low abdominal cramping) : Reports: Other (Vaginal bleeding) Musculoskeletal: Reports: No Symptoms Skin: Reports: No Symptoms Neurological: Reports: No Symptoms Psychiatric: Reports: No Symptoms Hematologic/Lymphatic: Reports: No Symptoms Immunologic: Reports: No Symptoms ED EXAM - Physical Exam Exam: See Below Exam Limited By: No Limitations General Appearance: Alert, WD/WN, No Apparent Distress Respiratory/Chest: No Respiratory Distress, Lungs Clear, Normal Breath Sounds, No Accessory Muscle Use, Chest Non-Tender Cardiovascular: Normal Peripheral Pulses, Regular Rate, Rhythm, No Edema, No Gallop, No JVD, No Murmur, No Rub GI/Abdominal Exam: Normal Bowel Sounds, Soft, No Organomegaly, No Distention, No Abnormal Bruit, No Mass, Pelvis Stable, Tender (mild mid-lower abdomen) (Female) Exam: Normal External Exam, Other (small amount of bloody mucous from cervical os). No: Cervical Dilatation Heart Tones: Present Heart Tones per Min: 158 Neurological: Alert, Oriented, CN II-XII Intact, Normal Cognition, Normal Gait, Normal Reflexes, No Motor/Sensory Deficits Psychiatric: Normal Affect, Normal Mood Skin Exam: Warm, Dry, Intact, Normal Color, No Rash Course - Vital Signs Last Recorded V/S: Last Vital Signs Temp 97.5 F 09/30/20 20:28 Pulse 93 09/30/20 20:28 Resp 15 09/30/20 20:28 BP 124/79 09/30/20 20:28 Pulse Ox 95 09/30/20 20:28 - Orders/Labs/Meds Orders: Active Orders 24 hr Category Date Time Status OB Transvaginal [US] Stat Exams 09/30/20 20:32 Taken UA W/MICROSCOPIC [URIN] Stat Lab 09/30/20 22:25 Results Labs: Laboratory Tests 09/30/20 09/30/20 09/30/20 Range/Units 20:48 20:48 22:25 WBC 10.73 H (3.98-10.04) K/mm3 RBC 4.31 (3.98-5.22) M/mm3 Hgb 12.7 D (11.2-15.7) gm/dl Hct 36.5 (34.1-44.9) % MCV 84.7 (79.4-94.8) fl MCH 29.5 (25.6-32.2) pg MCHC 34.8 (32.2-35.5) g/dl RDW Std Deviation 39.8 (36.4-46.3) fL Plt Count 213 D (182-369) K/mm3 MPV 10.5 (9.4-12.3) fl Neut % (Auto) 73.5 H (34.0-71.1) % Lymph % (Auto) 20.1 (19.3-51.7) % [place] % (Auto) 5.4 (4.7-12.5) % Eos % (Auto) 0.5 L (0.7-5.8) Baso % (Auto) 0.2 (0.1-1.2) % Neut # (Auto) 7.89 H (1.56-6.13) K/mm3 Lymph # (Auto) 2.16 (1.18-3.74) K/mm3 [place] # (Auto) 0.58 H (0.24-0.36) K/mm3 Eos # (Auto) 0.05 (0.04-0.36) K/mm3 Baso # (Auto) 0.02 (0.01-0.08) K/mm3 Sodium 138 (136-145) mEq/L Potassium 3.2 L (3.5-5.1) mEq/L Chloride 104 (98-107) mEq/L Carbon Dioxide 23 (21-32) mEq/L Anion Gap 14.2 (5-15) BUN 10 (7-18) mg/dL Creatinine 0.6 (0.55-1.02) mg/dL Est Cr Clr Drug Dosing 118.88 mL/min Estimated GFR (MDRD) > 60 (>60) mL/min BUN/Creatinine Ratio 16.7 (14-18) Glucose 115 H (74-106) mg/dL Calcium 8.5 (8.5-10.1) mg/dL Total Bilirubin 0.2 (0.2-1.0) mg/dL AST 15 (15-37) U/L ALT 34 (14-59) U/L Alkaline Phosphatase 58 (46-116) U/L Total Protein 6.4 (6.4-8.2) g/dl Albumin 2.8 L (3.4-5.0) g/dl Globulin 3.6 gm/dL Albumin/Globulin Ratio 0.8 L (1-2) Urine Color Yellow (Yellow) Urine Appearance Clear (Clear) Urine pH 7.0 (5.0-8.0) Ur Specific [place] > or = 1.030 (1.005-1.030) Urine Protein Negative (Negative) Urine Glucose (UA) Negative (Negative) Urine Ketones Negative (Negative) Urine Occult Blood Trace-lysed H (Negative) Urine Nitrite Negative (Negative) Urine Bilirubin Negative (Negative) Urine Urobilinogen 0.2 (0.2-1.0) Ur Leukocyte Esterase Negative (Negative) - Re-Assessments/Exams Free Text/Narrative Re-Assessment/Exam: Patient is a 35-year-old female, G2, P1, 15 weeks gestation presenting to the emergency department with complaints of acute onset of vaginal bleeding while she was straining to vomit. She has been having some intermittent lower abdominal cramping, however states this has been going on for a few days and she related to constipation. She has been having issues with vomiting throughout her needed Zofran and Phenergan as needed. Her INVOICING SPECIALIST is Dr. Gutierrez and she last saw him on August 30. I have ordered CBC, CMP, and OB ultrasound to be completed. 09/30/20 21:56 Hematology was significant for WBC minimally elevated at 10.73, potassium 3.2, albumin 2.8, glucose 115. Urinalysis and results of the OB ultrasound are pending. 09/30/20 22:26 OB ultrasound shows a single live intrauterine gestation with a heart rate of 148. There is increased vascularity at the placenta and uterine margin of uncertain significance. Pelvic exam was completed. There was a small amount of mucousy blood from the cervical os but the cervix is closed. Patient states she only had a scant amount of blood on her pad when she removed it. Case was discussed with Dr. Gutierrez, INVOICING SPECIALIST. He recommended patient refrain from strenuous activity with no vaginal intercourse. He would like her to follow-up with him in the clinic next week and he will likely repeat the ultrasound at that time. Patient just provided a urine now. I will not make her wait for the results, if anything abnormal should show up I will notify her. Discharge instructions as documented. Departure - Departure Time of Disposition: 22:28 Disposition: Home, Self-Care 01 Condition: Good Clinical Impression: Vaginal bleeding during - Discharge Information *PRESCRIPTION DRUG MONITORING PROGRAM REVIEWED*: No *COPY OF PRESCRIPTION DRUG MONITORING REPORT IN PATIENT JING: No Instructions: Vaginal Bleeding During , Second Trimester, [id number] Referrals: Dago Gutierrez MD [Primary Care Provider] - Forms: ED Department Discharge Additional Instructions: You were seen in the emergency department this evening for an episode of vaginal bleeding that occurred while you were vomiting. He work-up included blood work, urinalysis, and an OB ultrasound. Results of your work-up were found to be overall normal. Urinalysis results are pending. If this should show anything abnormal, I will notify you. Case was discussed with your INVOICING SPECIALIST, Dr. Gutierrez. He recommended that she go home and rest. Refrain from strenuous activity and vaginal intercourse. He would like you to follow-up with him in the clinic next week and he will likely repeat the ultrasound. If you should experience any new or worsening symptoms of concern, please not hesitate to return to the emergency department. Sepsis Event Note (ED) - Evaluation Sepsis Screening Result: No Definite Risk - Focused Exam Vital Signs: Vital Signs Temp Pulse Resp BP Pulse Ox 09/30/20 20:28 97.5 F 93 15 124/79 95 - My Orders Last 24 Hours: My Active Orders 09/30/20 20:32 OB Transvaginal [US] Stat 09/30/20 22:25 UA W/MICROSCOPIC [URIN] Stat - Assessment/Plan Last 24 Hours: My Active Orders 09/30/20 20:32 OB Transvaginal [US] Stat 09/30/20 22:25 UA W/MICROSCOPIC [URIN] Stat
--- NOTE | 2020-10-01 11:10 | US ---
Obstetrical ultrasound: Multiple real-time images were obtained transabdominally. Comparison: No previous abdominal imaging is available. Dates: Current ultrasound: [facility] 03/27/21, gestational age 14 weeks 4 days presentation: Mobile Placenta: Anterior, visualization of the inferior placenta not seen Amniotic fluid: DEANN 8.2 cm Measurements: BPD: 2.60 cm - 14 weeks 4 days Head circumference: 10 point is 8 3 cm - 15 weeks 1 day Abdominal circumference: 8.02 cm - 14 weeks 3 days Femur length: 1.38 cm - 14 weeks 0 days Estimated weight: 95 g (0 lbs. 3 oz.), estimated weight at 50th percentile Heart rate: 148 bpm Cervical length: Not well visualized, not measured Other findings: Vascularity is seen at the placental uterine interface which is believed to be incidental. Impression: 1. Single intrauterine gestation. Dates as noted above. 2. Nothing acute is appreciated on transabdominal obstetrical ultrasound. Diagnostic code #2 I agree with preliminary report issued by Steve finalized on 09/30/20, 11:15 PM [employer]
== END 2020-09-30 22:35 | disposition home or self-care (01) ==
LOC: JD.ED 20:16
DX: O20.9 Hemorrhage in early pregnancy, unspecified (principal); Z88.8 Allergy status to other drugs, medicaments and biological substances; Z3A.15 15 weeks gestation of pregnancy
CPT/HCPCS: 36415; 76817; 76817-26; 80053; 81001; 85025; 99284; 99284-25

== ENCOUNTER 2021-09-23 13:07 | Emergency (ER) | payer BC ==
[2021-09-23] MEDS ORDERED: Ondansetron 4 MG/2 ML SDV IVPUSH ONE (13:57)
[2021-09-23] MEDS ORDERED: HYDROmorphone 0.5 MG/0.5 ML Syringe IVPUSH ONE (13:57)
[2021-09-23] MEDS ORDERED: Sodium Chloride 0.9% 10 ML Syringe FLUSH PRN ×2 (13:57→14:30)
[2021-09-23] MEDS ORDERED: Iopamidol 612 MG/ML 100 ML Bottle IVPUSH ONE (14:30)
[2021-09-23] MEDS ORDERED: Iopamidol 612 MG/ML 50 ML SDV IVPUSH ONE (14:30)
[2021-09-23] MEDS ORDERED: Ketorolac 30 MG/ML SDV IVPUSH ONE (15:13)
[2021-09-23] MEDS ORDERED: Cyclobenzaprine 10 MG Tab PO ONE (15:13)
[2021-09-23] MEDS ORDERED: Acetaminophen 325 MG Tab PO ONE (18:49)
== END 2021-09-23 21:35 | disposition home or self-care (01) ==
LOC: JD.ED 13:07
DX: M54.50 Low back pain, unspecified (principal); M54.2 Cervicalgia; M25.552 Pain in left hip; K21.9 Gastro-esophageal reflux disease without esophagitis; Z88.0 Allergy status to penicillin; Z88.8 Allergy status to other drugs, medicaments and biological substances; Z72.0 Tobacco use
CPT/HCPCS: 70450; 71260; 72125; 72131; 73502; 74177; 96374; 96375; 99284; A9270; J1170; J1885; J2405; Q9967; 99285

== ENCOUNTER 2023-05-21 18:12 | Emergency (ER) | payer MEDICAID ==
[2023-05-21] MEDS ORDERED: Cefdinir 300 MG Cap PO ONE (20:06)
== END 2023-05-21 20:43 | disposition home or self-care (01) ==
LOC: JD.ED 18:12
DX: J01.10 Acute frontal sinusitis, unspecified (principal); J32.2 Chronic ethmoidal sinusitis; R13.10 Dysphagia, unspecified; Z88.8 Allergy status to other drugs, medicaments and biological substances; Z88.0 Allergy status to penicillin
CPT/HCPCS: 99283; A9270

== ENCOUNTER 2023-05-22 10:38 | Emergency (ER) | payer MEDICAID ==
[2023-05-22] MEDS ORDERED: Dexamethasone 10 MG/ML SDV IM ONE (11:39)
[2023-05-22] MEDS ORDERED: Ketorolac 30 MG/ML SDV IM ONE (11:39)
[2023-05-22 14:24] LABS: BASOPHILS PERCENT AUTO 0.3 % (0.0-1.0); EOSINOPHILS ABSOLUTE AUTO 0.1 K/mm3 (0.0-0.4); EOSINOPHILS PERCENT AUTO 0.8 % (0.0-6.0); HEMATOCRIT 39.1 % (37.0-47.0); HEMOGLOBIN 13.4 gm/dl (12.0-16.0); IMMATURE GRAN ABSOLUTE AUTO 0.02 K/mm3 (0.00-0.05); IMMATURE GRAN PERCENT AUTO 0.2 % (0.0-0.4); LYMPHOCYTES ABSOLUTE AUTO 1.8 K/mm3 (1.0-4.8); LYMPHOCYTES PERCENT AUTO 18.6 % (24.0-44.0); MEAN CORPUSCULAR HEMOGLOBIN 29.7 pg (28.0-32.0); MEAN CORPUSCULAR HGB CONC 34.3 g/dl (32.0-36.0); MEAN CORPUSCULAR VOLUME 86.7 fl (83.0-99.0); MEAN PLATELET VOLUME 10.3 fl (9.4-12.3); MONOCYTES ABSOLUTE AUTO 0.6 K/mm3 (0.0-0.8); MONOCYTES PERCENT AUTO 6.1 % (0.0-8.0); NEUTROPHILS ABSOLUTE AUTO 7.2 K/mm3 (1.8-7.7); PLATELET COUNT,PLT 309 K/mm3 (150-400); RED BLOOD CELL COUNT 4.51 M/mm3 (4.10-5.30); WHITE BLOOD CELL COUNT,WBC 9.67 K/mm3 (3.9-11.3)
== END 2023-05-22 15:00 | disposition home or self-care (01) ==
LOC: JD.ED 10:38
DX: E04.9 Nontoxic goiter, unspecified (principal); Z88.8 Allergy status to other drugs, medicaments and biological substances; Z88.0 Allergy status to penicillin
CPT/HCPCS: 36415; 84439; 84443; 84481; 85025; 86376; 86800; 96372; 99283; J1100; J1885